=== PATIENT | male | born 1980 | race Caucasian/White ===

== ENCOUNTER 2019-11-30 18:55 | Emergency (ER) | payer SELFPAY ==
[~2019-11-30] VITALS: Ht 188 cm; Wt 86.2 kg
[2019-11-30 18:56] VITALS: BP 148/100
[2019-11-30] MEDS ORDERED: LORazepam 0.5 MG TAB PO ONE (19:30)
[2019-11-30] MEDS ORDERED: IBUPROFEN 600 MG TAB PO ONE (20:30)
[2019-11-30] MEDS ORDERED: ACETAMINOPHEN 325 MG TAB PO ONE (20:30)
[2019-11-30 21:39] LABS: BASOPHILS # (AUTO) 0.1 K/uL (0.00-0.22); EOSINOPHILS # (AUTO) 0.3 K/uL (0-0.4); EOSINOPHILS % (AUTO) 3.2 % (0.0-4.0); HEMATOCRIT 47.2 % (36-52); HEMOGLOBIN 16.1 g/dL (12.0-18.0); LYMPHOCYTES # (AUTO) 1.8 K/uL (2.0-11.5); LYMPHOCYTES % (AUTO) 19.7 % (20.5-51.1); MEAN CORPUSCULAR HEMOGLOBIN 31 pg (27-31); MEAN CORPUSCULAR HGB CONC 34 g/dL (33-37); MEAN CORPUSCULAR VOLUME 89.8 fL (80-94); MONOCYTES # (AUTO) 0.7 K/uL (0.8-1.0); MONOCYTES % (AUTO) 7.1 % (1.7-9.3); NEUTROPHILS # (AUTO) 6.5 K/uL (1.8-7.7); PLATELET COUNT (AUTO) 385 K/uL (140-450); RED BLOOD CELL COUNT(AUTO) 5.26 MIL/uL (4.20-6.10); RED CELL DISTRIBUTION WIDTH 12.8 % (11.6-13.7); WHITE BLOOD COUNT (AUTO) 9.4 K/uL (4.8-10.8)
[2019-11-30 21:57] LABS: ANION GAP 14.1 (8-16); CARBON DIOXIDE 23.9 mmol/L (21-32); CREATININE 1.2 mg/dL (0.6-1.3); TOTAL BILIRUBIN 0.4 mg/dL (0.0-1.0)
[2019-11-30 22:26] VITALS: BP 132/77
== END 2019-11-30 22:26 | disposition home or self-care (01) ==
LOC: MED 18:55
DX: F41.9 Anxiety disorder, unspecified (principal)
CPT/HCPCS: 36415; 71045; 80053; 84484; 85025; 85379; 93005; 99285; Q0163

== ENCOUNTER 2020-02-21 23:45 | Emergency (ER) | payer OTHER ==
[~2020-02-21] VITALS: Ht 188 cm; Wt 86.2 kg
[2020-02-22] VITALS: BP 155/102
--- NOTE | 2020-02-22 | NUR ---
PT AMBULATORY TO ROOM 4.
--- NOTE | 2020-02-22 00:05 | NUR ---
DR. HOANG AT BEDSIDE
--- NOTE | 2020-02-22 00:10 | NUR ---
PT STATES HAVING BODY ACHE, +N/-V/+D SKIN IS PINK/WARM/DRY; AAOX4 WITH EVEN AND STEADY GAIT; LUNGS CLEAR BL; HR EVEN AND REGULAR; PT DENIES ANY FEVER, CP, SOB, OR COUGH AT THIS TIME; PATIENT STATES PAIN OF 0/10 AT THIS TIME; VSS; PATIENT POSITIONED FOR COMFORT; HOB ELEVATED; BEDRAILS UP X1; BED DOWN. ER MD MADE AWARE OF PT STATUS.
[2020-02-22 00:18] VITALS: BP 155/102
== END 2020-02-22 00:17 | disposition home or self-care (01) ==
LOC: MED 23:45
DX: R11.0 Nausea (principal); M79.10 Myalgia, unspecified site; F32.9 Major depressive disorder, single episode, unspecified; F41.9 Anxiety disorder, unspecified; Z90.49 Acquired absence of other specified parts of digestive tract
CPT/HCPCS: 99283

== ENCOUNTER 2020-04-18 20:07 | Emergency (ER) | payer OTHER ==
[~2020-04-18] VITALS: Ht 188 cm; Wt 85.3 kg
[2020-04-18 20:19] VITALS: BP 155/99
--- NOTE | 2020-04-18 20:22 | NUR ---
To ED bed 01
--- NOTE | 2020-04-18 20:33 | NUR ---
PT HAS BEEN HAVING ADB PAIN WITH NAUSEA AND VOMITING TODAY. HAS VOMITED X 6, UNABLE TO KEEP ANYTHING DOWN. PT ALSO C/O CONSTIPATION, LAST BM YESTERDAY. PT IS HAVING DIFFUSE ABD PAIN, TENDER UPON PALPATION, ACTIVE BOWEL SOUNDS. AFEBILE. BED IN LOWEST POSITION AND SIDERAIL UP X 1. NKA HX - MDD, ANXIETY
--- NOTE | 2020-04-18 20:43 | NUR ---
IV ESTABLISHED AND LABS COLLECTED
[2020-04-18] MEDS ORDERED: NACL 0.9% 1,000 ML IV ONE (21:07)
[2020-04-18] MEDS ORDERED: DICYCLOMINE 20 MG/2 ML VIAL IM ONE (21:10)
[2020-04-18] MEDS ORDERED: KETOROLAC 30 MG/ML VIAL IVP ONE (21:10)
[2020-04-18] MEDS ORDERED: ONDANSETRON 4 MG/2 ML VIAL IVP ONE ×2 (21:10→23:00)
--- NOTE | 2020-04-18 21:22 | NUR ---
PT UP AND AMBULATED TO RESTROOM, STEADY GAIT NOTED
--- NOTE | 2020-04-18 21:46 | NUR ---
PT RESTING MORE COMFORTABLY, ABD PAIN IS 3/10 NOW. REMAINS ON BEDSIDE MONITOR
[2020-04-18 21:48] LABS: BASOPHILS # (AUTO) 0.1 K/uL (0.00-0.22); BASOPHILS % (AUTO) 0.7 % (0.0-2.0); EOSINOPHILS # (AUTO) 0.2 K/uL (0-0.4); EOSINOPHILS % (AUTO) 2.4 % (0.0-4.0); HEMATOCRIT 46.9 % (36-52); HEMOGLOBIN 16.1 g/dL (12.0-18.0); LYMPHOCYTES # (AUTO) 2.3 K/uL (2.0-11.5); LYMPHOCYTES % (AUTO) 24.5 % (20.5-51.1); MEAN CORPUSCULAR HEMOGLOBIN 30 pg (27-31); MEAN CORPUSCULAR HGB CONC 34 g/dL (33-37); MEAN CORPUSCULAR VOLUME 87.7 fL (80-94); MONOCYTES # (AUTO) 0.7 K/uL (0.8-1.0); MONOCYTES % (AUTO) 7.8 % (1.7-9.3); NEUTROPHILS # (AUTO) 6.1 K/uL (1.8-7.7); NEUTROPHILS % (AUTO) 64.6 % (42.2-75.2); PLATELET COUNT (AUTO) 356 K/uL (140-450); RED BLOOD CELL COUNT(AUTO) 5.35 MIL/uL (4.20-6.10); RED CELL DISTRIBUTION WIDTH 13.8 % (11.6-13.7); WHITE BLOOD COUNT (AUTO) 9.5 K/uL (4.8-10.8)
[2020-04-18 22:00] LABS: ALBUMIN 4.3 g/dL (3.4-5.0); ANION GAP 19.3 (8-16); CARBON DIOXIDE 20.7 mmol/L (21-32); CREATININE 1.1 mg/dL (0.6-1.3); TOTAL BILIRUBIN 0.5 mg/dL (0.0-1.0)
[2020-04-18] MEDS ORDERED: POTASSIUM CHLORIDE 10 MEQ TABER PO ONE (22:05)
[2020-04-18] MEDS ORDERED: ONDANSETRON 4 MG/2 ML VIAL ONE (22:40)
[2020-04-18 23:20] VITALS: BP 131/81
--- NOTE | 2020-04-18 23:20 | NUR ---
Patient discharged with v/s stable. Written and verbal after care instructions given and explained. Patient alert, oriented and verbalized understanding of instructions. Ambulatory with steady gait. All questions addressed prior to discharge. ID band removed. Patient advised to follow up with PMD. Rx of BENTYL given. Patient educated on indication of medication including possible reaction and side effects. Opportunity to ask questions provided and answered.
== END 2020-04-18 23:20 | disposition home or self-care (01) ==
LOC: MED 20:07
DX: R10.9 Unspecified abdominal pain (principal); F41.9 Anxiety disorder, unspecified; Z90.49 Acquired absence of other specified parts of digestive tract
CPT/HCPCS: 36415; 74018; 80053; 83690; 85025; 96361; 96372; 96374; 96375; 99284; J0500; J1885; J2405; J7030; Q0092; 96376

== ENCOUNTER 2020-11-15 14:45 | Emergency (ER) | payer OTHER ==
[~2020-11-15] VITALS: Ht 188 cm; Wt 87.5 kg
[2020-11-15 14:57] VITALS: BP 140/87
[2020-11-15] MEDS ORDERED: LORazepam 0.5 MG TAB PO ONE (15:15)
--- NOTE | 2020-11-15 15:30 | NUR ---
assumed care of a 40/M from triage with a c/o chest pain. pt reports sudden onset at 1200 today. he reports pain as sharp/tingling in nature. pt has hx of anxiety/panic attacks in the past. no apparent distress at this time. pt is calm, cooperative.
[2020-11-15] MEDS ORDERED: HYDR-637 PO (16:03)
[2020-11-15 16:13] VITALS: BP 140/87
--- NOTE | 2020-11-15 16:14 | NUR ---
Patient discharged with v/s stable. Written and verbal after care instructions given and explained. Patient alert, oriented and verbalized understanding of instructions. Ambulatory with steady gait. All questions addressed prior to discharge. ID band removed. Patient advised to follow up with PMD. Rx of hydroxyzine 25mg PO BID given. Patient educated on indication of medication including possible reaction and side effects. Opportunity to ask questions provided and answered.
== END 2020-11-15 16:13 | disposition home or self-care (01) ==
LOC: MED 14:45
DX: F41.9 Anxiety disorder, unspecified (principal); Z79.899 Other long term (current) drug therapy
CPT/HCPCS: 93005; 99283

== ENCOUNTER 2022-05-14 13:57 | Emergency (ER) | payer OTHER ==
[~2022-05-14] VITALS: Ht 188 cm; Wt 96.2 kg
[~2022-05-14 13:57] MED LIST: HYDR-637 PO
[2022-05-14 14:19] VITALS: BP 128/97
--- NOTE | 2022-05-14 14:26 | NUR ---
PT AMB TO BED 9.
--- NOTE | 2022-05-14 14:47 | NUR ---
DR RODRIGUEZ AT BEDSIDE
[2022-05-14] MEDS ORDERED: NACL 0.9% 1,000 ML IV ONE (15:15)
[2022-05-14 15:28] LABS: BASOPHILS # (AUTO) 0.1 K/uL (0.00-0.22); BASOPHILS % (AUTO) 1.1 % (0.0-2.0); EOSINOPHILS # (AUTO) 0.4 K/uL (0-0.4); EOSINOPHILS % (AUTO) 4.5 % (0.0-4.0); HEMATOCRIT 43.9 % (36-52); LYMPHOCYTES # (AUTO) 1.9 K/uL (2.0-11.5); LYMPHOCYTES % (AUTO) 22.3 % (20.5-51.1); MEAN CORPUSCULAR HEMOGLOBIN 30 pg (27-31); MEAN CORPUSCULAR HGB CONC 34 g/dL (33-37); MEAN CORPUSCULAR VOLUME 88.5 fL (80-94); MONOCYTES # (AUTO) 0.7 K/uL (0.8-1.0); MONOCYTES % (AUTO) 8.2 % (1.7-9.3); NEUTROPHILS # (AUTO) 5.5 K/uL (1.8-7.7); NEUTROPHILS % (AUTO) 63.9 % (42.2-75.2); PLATELET COUNT (AUTO) 357 K/uL (140-450); RED BLOOD CELL COUNT(AUTO) 4.96 MIL/uL (4.20-6.10); RED CELL DISTRIBUTION WIDTH 13.3 % (11.6-13.7); WHITE BLOOD COUNT (AUTO) 8.5 K/uL (4.8-10.8)
[2022-05-14 15:35] LABS: ALBUMIN 3.7 g/dL (3.4-5.0); ANION GAP 15.8 (8-16); ASPARTATE AMINOTRANSFERASE 27 U/L (15-37); CHLORIDE 101 mmol/L (98-107); CREATININE 1.2 mg/dL (0.6-1.3); GFR ARICAN-AMERICAN 86 mL/min (>90); GLUCOSE 96 mg/dL (74-106); POTASSIUM 3.8 mmol/L (3.5-5.1); SODIUM SERUM 141 mmol/L (136-145); TOTAL BILIRUBIN 0.3 mg/dL (0.0-1.0); UREA NITROGEN, BLOOD 15 mg/dL (7-18)
--- NOTE | 2022-05-14 16:00 | NUR ---
42 Y/O MALE BIB SELF REFERRED BY [facility] FOR HIGH BP, C/O DIZZINESS, MID ABDOMINAL PAIN, [place], NAUSEA , SHAKINESS, WEAKNESS IN LEGS X 1 WEEK. DENIES ANY ABD PAIN AT THE MOMENT, DENIES ANY VOMITING OR DIARRHEA, DENIES CP OR SOB PMH: ANXIETY, DEPRESSION NKA
[2022-05-14] MEDS ORDERED: NAPR-54 PO (16:18)
[2022-05-14] MEDS ORDERED: KETOROLAC 15 MG/ML VIAL IVP ONE (16:20)
[2022-05-14 16:29] VITALS: BP 132/74
== END 2022-05-14 16:37 | disposition home or self-care (01) ==
LOC: MED 13:57
DX: G43.909 Migraine, unspecified, not intractable, without status migrainosus (principal); E78.00 Pure hypercholesterolemia, unspecified; Z90.49 Acquired absence of other specified parts of digestive tract
CPT/HCPCS: 36415; 71045; 80053; 81002; 84484; 85025; 93005; 96374; 99285; J1885; Q0092; J7030

== ENCOUNTER 2023-05-25 09:39 | Emergency (ER) | payer OTHER ==
[~2023-05-25] VITALS: Ht 188 cm; Wt 97.1 kg
[~2023-05-25 09:39] MED LIST changes: +NAPR-54 PO
[2023-05-25 09:44] VITALS: BP 141/93; PULSE 81; RESP 20; TEMP 97.4; O2SAT 97
[2023-05-25] MEDS ORDERED: KETOROLAC 30 MG/ML VIAL IM ONE (10:35)
[2023-05-25] MEDS ORDERED: LIDOCAINE/EPI 2% 1:100000 20 ML VIAL INJ ONE (10:35)
[2023-05-25] MEDS ORDERED: BACI-418 TP (10:55)
[2023-05-25] MEDS ORDERED: BACITRACIN OINT 500 UNITS/GM PKT TP ONE ×2 (11:15)
[2023-05-25 11:21] VITALS: BP 141/93; PULSE 81; RESP 20; TEMP 97.4; O2SAT 97
== END 2023-05-25 11:21 | disposition home or self-care (01) ==
LOC: MED 09:39
DX: S91.012A Laceration without foreign body, left ankle, initial encounter (principal); I10 Essential (primary) hypertension; F32.9 Major depressive disorder, single episode, unspecified; Z79.899 Other long term (current) drug therapy; Z79.1 Long term (current) use of non-steroidal anti-inflammatories (NSAID); Z79.2 Long term (current) use of antibiotics; W45.8XXA Other foreign body or object entering through skin, initial encounter; Y93.89 Activity, other specified; Y92.89 Other specified places as the place of occurrence of the external cause; Y99.8 Other external cause status
CPT/HCPCS: 12001; 90471; 90715; 96372; 99284; J1885

== ENCOUNTER 2023-06-03 15:46 | Emergency (ER) | payer OTHER ==
[~2023-06-03] VITALS: Ht 188 cm; Wt 97.5 kg
[~2023-06-03 15:46] MED LIST changes: +BACI-418 TP
[2023-06-03 16:03] VITALS: BP 135/83; PULSE 73; RESP 20; TEMP 97.1; O2SAT 97
[2023-06-03 16:41] VITALS: BP 135/83; PULSE 73; RESP 20; TEMP 97.1; O2SAT 97
== END 2023-06-03 16:37 | disposition home or self-care (01) ==
LOC: MED 15:46
DX: S91.012D Laceration without foreign body, left ankle, subsequent encounter (principal); Z48.02 Encounter for removal of sutures; I10 Essential (primary) hypertension; Z79.899 Other long term (current) drug therapy; Z79.2 Long term (current) use of antibiotics; Z79.1 Long term (current) use of non-steroidal anti-inflammatories (NSAID); X58.XXXD Exposure to other specified factors, subsequent encounter
CPT/HCPCS: 99281

== ENCOUNTER 2023-09-12 10:28 | Emergency (ER) | payer SELFPAY ==
[~2023-09-12] VITALS: Ht 188 cm; Wt 97.1 kg
[2023-09-12 10:43] VITALS: BP 149/95; PULSE 81; RESP 18; TEMP 98.6; O2SAT 98
[2023-09-12] MEDS: KETOROLAC 60 MG/2 ML VIAL IM ONE (11:00)
== END 2023-09-12 12:29 | disposition home or self-care (01) ==
LOC: MED 10:28
DX: R51.9 Headache, unspecified (principal); M54.2 Cervicalgia; I10 Essential (primary) hypertension; Z79.899 Other long term (current) drug therapy
CPT/HCPCS: 96372; 99283; J1885

== ENCOUNTER 2023-09-21 19:50 | Emergency (ER) | payer OTHER ==
[~2023-09-21] VITALS: Ht 188 cm; Wt 100.9 kg
[2023-09-21 20:35] VITALS: BP 120/87; PULSE 84; RESP 15; TEMP 98.1; O2SAT 96
== END 2023-09-21 22:32 | disposition left against medical advice (07) ==
LOC: MED 19:50
DX: H92.02 Otalgia, left ear (principal); R51.9 Headache, unspecified; Z53.21 Procedure and treatment not carried out due to patient leaving prior to being seen by health care provider
CPT/HCPCS: 99281